=== PATIENT | female | born 1970 | race Caucasian/White ===

== ENCOUNTER 2018-03-16 13:04 | Outpatient (CLI) | payer OTHER ==
--- NOTE | 2018-03-22 12:28 | MMO ---
BILATERAL MAMMOGRAMS: History: Screening mammography. Comparison: Multiple exams back to 10-08-14. FINDINGS: Scattered fibroglandular densities and benign appearing calcification. Inframamillary lymph nodes are stable. No new dominant mass or suspicious calcifications. Study was evaluated with the assistance o f computer aided detection. IMPRESSION: BIRADS 2 - benign findings. Suggest routine follow up. POS: APRYL
== END 2018-03-16 13:05 | disposition home or self-care (01) ==
LOC: SCSMAMMO 13:04
PROVIDERS: ATTEND Internal Medicine
DX: Z12.31 Encounter for screening mammogram for malignant neoplasm of breast (principal)
CPT/HCPCS: 77067

== ENCOUNTER 2019-03-23 09:59 | Day surgery (SDC) | payer OTHER ==
[~2019-03-23 09:59] MED LIST: Acetaminophen 325 MG/10.15 ML UDCUP PO SCH; Acetaminophen 500 MG TAB PO PRN; INFLIXIMAB IVPB SCH; Ondansetron PF 4 MG/2 ML Vial SLOW IVP SCH; SODIUM CHLORIDE 0.9% IVPB SCH; diphenhydrAMINE 25 MG CAP PO SCH; diphenhydrAMINE 50 MG/ML VIAL IVP PRN; diphenhydrAMINE 50 MG/ML VIAL IVP SCH
[2019-03-23] MEDS ORDERED: Sodium Chloride 0.9% 20 ML ONE (10:12)
[2019-03-23 10:26] VITALS: TEMP 99.2
[2019-03-23 12:45] VITALS: BP 117/56
== END 2019-03-23 13:42 | disposition home or self-care (01) ==
LOC: ONC/OP 09:59
PROVIDERS: ATTEND Internal Medicine Gastroenterology
DX: K50.919 Crohn's disease, unspecified, with unspecified complications (principal)
CPT/HCPCS: 96375; 96413; 96415; J1745; J2405; J7050

== ENCOUNTER → 2019-05-23 | Day surgery (SDC) | payer OTHER ==
[~2019-05-23] MED LIST changes: +INFLIXIMAB-DYYB 600 MG in Sodium Chloride 0.9% 250 ML 190 ML IVPB SCH; +Sodium Chloride 0.9% 30 ML ONE
[2019-05-23 18:11] VITALS: BP 132/62; TEMP 98.5
== END ==
LOC: ONC/OP 09:43
PROVIDERS: ATTEND Internal Medicine Gastroenterology
DX: K51.919 Ulcerative colitis, unspecified with unspecified complications (principal)
CPT/HCPCS: 96375; 96413; 96415; J1745; J2405; J7050; Q5103

== ENCOUNTER 2019-07-27 11:00 | Day surgery (SDC) | payer OTHER ==
[~2019-07-27 11:00] MED LIST changes: -Acetaminophen 325 MG/10.15 ML UDCUP PO SCH; -INFLIXIMAB IVPB SCH; -INFLIXIMAB-DYYB 600 MG in Sodium Chloride 0.9% 250 ML 190 ML IVPB SCH; +INFLIXIMAB-DYYB 600 MG in Sodium Chloride 0.9% 250 ML 250 ML IVPB SCH; +Ondansetron PF 4 MG/2 ML Vial SLOW IVP PRN; -Ondansetron PF 4 MG/2 ML Vial SLOW IVP SCH; -SODIUM CHLORIDE 0.9% IVPB SCH; -Sodium Chloride 0.9% 30 ML ONE; +diphenhydrAMINE 25 MG CAP PO PRN; -diphenhydrAMINE 25 MG CAP PO SCH; -diphenhydrAMINE 50 MG/ML VIAL IVP SCH
[2019-07-27] MEDS ORDERED: Acetaminophen 500 MG TAB PO PRN ×2 (11:03→11:04)
[2019-07-27] MEDS ORDERED: INFLIXIMAB-DYYB 600 MG in Sodium Chloride 0.9% 250 ML 250 ML IVPB SCH (11:15)
[2019-07-27 15:05] VITALS: BP 128/57; TEMP 97.9
== END 2019-07-27 15:07 | disposition home or self-care (01) ==
LOC: ONC/OP 11:00
PROVIDERS: ATTEND Internal Medicine Gastroenterology
DX: K51.919 Ulcerative colitis, unspecified with unspecified complications (principal)
CPT/HCPCS: 96375; 96413; 96415; J2405; J7050; Q5103

== ENCOUNTER 2019-09-21 10:12 | Day surgery (SDC) | payer OTHER ==
[~2019-09-21 10:12] MED LIST changes: +Acetaminophen 500 MG TAB PO SCH; +INFLIXIMAB-DYYB 600 MG in Sodium Chloride 0.9% 250 ML 190 ML IVPB SCH; +diphenhydrAMINE 25 MG CAP PO SCH; +diphenhydrAMINE 50 MG/ML VIAL IVP SCH
[2019-09-21 10:54] VITALS: BP 130/60
[2019-09-21] MEDS ORDERED: Sodium Chloride 0.9% 20 ML ONE (12:11)
== END 2019-09-21 15:18 | disposition home or self-care (01) ==
LOC: ONC/OP 10:12
PROVIDERS: ATTEND Internal Medicine Gastroenterology
DX: K51.919 Ulcerative colitis, unspecified with unspecified complications (principal)
CPT/HCPCS: 96375; 96413; 96415; J2405; J7050; Q5103

== ENCOUNTER 2023-01-06 12:06 | Outpatient (CLI) | payer MEDICAID, OTHER | END 2023-01-06 12:07 | disposition home or self-care (01) | LOC: RAD 12:06 | PROVIDERS: ATTEND Internal Medicine | DX: M79.642 Pain in left hand (principal) | CPT/HCPCS: 36415; 80048; 82306; 82607; 82746; 83036 ==